=== PATIENT | male | born 1955 | race Hispanic/Latino ===

== ENCOUNTER 2017-06-04 07:14 | Day surgery (SDC) | payer MEDICARE ==
[2015-07-27 18:42] VITALS: BMI 26.4
--- NOTE | 2017-06-04 08:21 | CP.SDSHP ---
Same Day Surgery H & P - History Proposed Procedure: COLONSCOPY Pre-Op Diagnosis: SEE NOTES - Previous Medical/Surgical History Cardiac: Other Neuro: Backaches, Other Misc: Other Pain: 2.Mild Pain - Allergies Allergies: Allergies Fruits Allergy (Uncoded 06/04/17 07:35) RASH Seafood Allergy (Uncoded 06/04/17 07:35) ITCHING - Physical Exam General Appearance: N Vital Signs: Vital Signs 06/04/17 07:49 Temperature 97.8 F Pulse Rate 73 Respiratory 19 Rate Blood Pressure 137/93 H O2 Sat by Pulse 99 Oximetry Neuro: WNL Heart: WNL Lungs: WNL GI: Other - {Optional Preform as Required} Breast: WNL Abdomen: Other Rectal: WNL Integument: WNL : WNL Ortho: Other ENT: WNL - Impression Pt. Evaluated Today:Candidate for Anesthesia & Procedure: Yes - Date & Time Time: 08:21 Short Stay Discharge - Short Stay Discharge Admitting Diagnosis/Reason for Visit: SCREENING Disposition: HOME/ ROUTINE
[2017-06-04] MEDS ORDERED: Propofol 10 mg/ml Inj (20 ML) ONE (08:26)
[2017-06-04] MEDS ORDERED: Belladonna-Phenobarbital PO ONE ×2 (09:00→11:00)
[2017-06-04 11:03] VITALS: TEMP 98.6
[2017-06-04 11:15] VITALS: BP 118/68; PULSE 64; RESP 18; O2SAT 98
== END 2017-06-04 12:00 | disposition home or self-care (01) ==
LOC: C.ENDO 07:14
PROVIDERS: ATTEND Specialist
DX: Z12.11 Encounter for screening for malignant neoplasm of colon (principal); K64.8 Other hemorrhoids; K64.4 Residual hemorrhoidal skin tags; K58.9 Irritable bowel syndrome, unspecified
CPT/HCPCS: 45380; 88305; J2704

== ENCOUNTER 2017-07-23 06:43 | Day surgery (SDC) | payer MEDICARE, MEDICAID ==
[2017-07-23 07:18] VITALS: BMI 24.3
[2017-07-23] MEDS ORDERED: Lidocaine Hydrochloride 5 ML INJ ONE (07:50)
[2017-07-23] MEDS ORDERED: Propofol 10 mg/ml Inj (20 ML) ONE (07:50)
--- NOTE | 2017-07-23 07:55 | CP.SDSHP ---
Same Day Surgery H & P - History Proposed Procedure: colonscopy Pre-Op Diagnosis: SEE NOTES - Previous Medical/Surgical History Cardiac: Hypertension Neuro: Other Misc: Other Pain: 2.Mild Pain - Allergies Allergies: Allergies Fruits Allergy (Intermediate, Uncoded 07/23/17 07:12) RASH Seafood Allergy (Intermediate, Uncoded 07/23/17 07:12) ITCHING - Physical Exam General Appearance: N Vital Signs: Vital Signs 07/23/17 07/23/17 07:22 07:45 Temperature 98.6 F Pulse Rate 68 68 Respiratory 19 Rate Blood Pressure 109/64 O2 Sat by Pulse 98 Oximetry Mental Status: Alert & Oriented x3 Neuro: WNL Heart: Other Lungs: WNL GI: WNL - {Optional Preform as Required} Breast: WNL Abdomen: Other Rectal: WNL Integument: WNL : WNL Ortho: Other ENT: WNL - Impression Pt. Evaluated Today:Candidate for Anesthesia & Procedure: Yes - Date & Time Time: 07:55 Short Stay Discharge - Short Stay Discharge Admitting Diagnosis/Reason for Visit: ENCOUNTER FOR SCREENING FOR MALIGNANT NEOPLASM OF Disposition: HOME/ ROUTINE
[2017-07-23 08:29] VITALS: TEMP 99.3
[2017-07-23] MEDS ORDERED: Lactated Ringer's 1,000 ML IV SCH (08:45)
[2017-07-23] MEDS ORDERED: Belladonna-Phenobarbital PO ONE (09:00)
[2017-07-23 09:01] VITALS: O2SAT 99
[2017-07-23 11:04] VITALS: BP 108/76; PULSE 54; RESP 15
== END 2017-07-23 10:30 | disposition home or self-care (01) ==
LOC: C.ENDO 06:43
PROVIDERS: ATTEND Specialist
DX: Z12.11 Encounter for screening for malignant neoplasm of colon (principal); D12.2 Benign neoplasm of ascending colon
CPT/HCPCS: 45380; 88305; J2704; J7120